=== PATIENT | male | born 1945 | race Caucasian/White ===

== ENCOUNTER 2021-03-31 09:38 | Outpatient (CLI) | payer MEDICARE, SELFPAY ==
[2021-03-31 10:05] LABS: Anion Gap 11 mmol/L (8-16); Blood Urea Nitrogen 22 mg/dL (9-20); Calcium 9.6 mg/dL (8.4-10.2); Carbon Dioxide 24 mmol/L (22-30); Chloride 107 mmol/L (98-107); Estimated Glomerular Filt Rate 49; Glucose 132 mg/dL (75-110); Potassium 4.3 mmol/L (3.4-5.0); Sodium 142 mmol/L (137-145)
== END 2021-03-31 09:39 | disposition home or self-care (01) ==
PROVIDERS: Visit Provider Anesthesiology
DX: Z79.899 Other long term (current) drug therapy (principal); Z01.818 Encounter for other preprocedural examination
CPT/HCPCS: 36415; 80048

== ENCOUNTER 2021-04-02 01:59 | Day surgery (SDC) | payer MEDICARE, SELFPAY ==
[2021-03-21 09:22] VITALS: BMI 27.8
[2021-04-02 10:05] VITALS: BP 126/75; PULSE 83; RESP 16; TEMP 36.6; O2SAT 99
[2021-04-02 10:17] VITALS: BMI 27.3
[2021-04-02] MEDS: LACTATED RINGERS 1,000 ML 30 ML IV CONT (10:35)
--- NOTE | 2021-04-02 10:40 | WPDANESEPPF ---
Anes - Initial Pre Proc Eval Procedure: Operation Date: 04/02/21 12:00 Proposed Procedures p Excisional Biopsy Left Buttocks Mass - Promise Ochoa MD Date/Time: 04/02/21 10:40 Surgeon: Promise Ochoa MD Pre Op Diagnosis: Left buttocks subcutaneous mass Patient Data Age: 76 Gender: M Height: 1.73 m Weight: 81.7 kg Allergies Allergy/AdvReac Type Severity Reaction Status Date / Time codeine Allergy Mild Upset Verified 04/02/21 10:12 stomach and pain Iodinated Contrast Media Allergy Mild Swelling Verified 04/02/21 10:12 Home Medications Medication Instructions Recorded Confirmed Type aspirin 81 mg chewable tablet 81 mg PO DAILY 03/18/21 04/02/21 History cilostazol 100 mg tablet 100 mg PO BID 03/18/21 03/21/21 History dicyclomine 10 mg capsule 10 mg PO BID 03/18/21 03/21/21 History diphenhydramine HCl 25 mg capsule 25 mg PO QHS 03/18/21 03/21/21 History furosemide 80 mg tablet 80 mg PO QAM 03/18/21 03/21/21 History losartan 50 mg tablet 50 mg PO DAILY 03/18/21 03/21/21 History metoprolol succinate 100 mg 100 mg PO DAILY 03/18/21 04/02/21 History tablet,extended release 24 hr multivitamin 1 tablet PO DAILY 03/18/21 04/02/21 History pantoprazole 40 mg tablet,delayed 40 mg PO QAM 03/18/21 03/21/21 History release potassium chloride 10 mEq 10 meq PO DAILY 03/18/21 03/21/21 History capsule,extended release psyllium husk 0.4 gram capsule 0.4 g PO DAILY 03/18/21 04/02/21 History rosuvastatin 40 mg tablet 40 mg PO DAILY 03/18/21 03/21/21 History Patient hx anesthesia problems: none Family hx anesthesia problems: none PMFSH Past Medical History Medical History CHF (congestive heart failure) History of blood transfusion History of heart attack History of kidney stones HTN (hypertension) Hx of hepatitis C Hypercholesteremia Surgical History Surgical History Hx of appendectomy Hx of CABG Hx of gastric ulcer ablation W endoscopy Family History Family History Father Old age Mother Acute myocardial infarction Sibling Agent [place] poisoning Sibling Acute myocardial infarction Social History Social History Smoking status: Current every day smoker Tobacco type: cigarettes Alcohol intake: current Substance use: current Substance use type: marijuana Living arrangements: alone Gender identity (if verbalized by the patient): Male Spiritual care concerns: No Anes - Eval Final PreProcedure Day of Procedure 04/02/21 10:40 Patient weight: overweight Heart: regular rate and rhythm and murmur (II/ SM) Lungs: clear to auscultation Airway: Mallampati scale class II and other (dentures) Neurological: alert and oriented Last oral intake: >/= 8 hours ASA classification: III Emergent: no Anesthetic plan: proceed Anesthesia type and monitoring: general GIVS and standard monitoring Informed Consent: The patient's anesthetic plan and its attendant risks and benefits were discussed with the patient/family/POA. Questions were solicited and answers provided to the satisfaction of the patient/family/POA.
--- NOTE | 2021-04-02 10:47 | WPDHPUPDATE1 ---
History and Physical Update Update Date/Time: 04/02/21 10:47 History and Physical has been reviewed, including an updated exam of the patient. There are NO changes in the patient's condition. Risks, benefits, and alternatives have been discussed and questions answered. Patient agrees to proceed with procedure.
[2021-04-02] MEDS: ceFAZolin 2 GM/D5W 50 ML 2 GM/50 ML BAG IVPB (11:52)
[2021-04-02] MEDS: BUPIVACAINE/EPINEPHRINE 0.5% 10 ML VIAL INFILTRATE (12:11)
[2021-04-02 12:30] VITALS: BP 107/59; PULSE 83; RESP 14; TEMP 36.4; O2SAT 97
--- NOTE | 2021-04-02 12:35 | W.PM.PROC2 ---
Procedure Note - Detailed Date of Procedure 04/02/21 Pre-op Diagnosis Left buttocks subcutaneous mass Post-op Diagnosis other (Ruptured sebaceous cyst) Procedure Performed excisional biopsy left buttock ruptured sebaceous cyst measuring 5 x 4 cm Surgeon Promise Ochoa MD Anesthesia MAC and local Indications 76-year-old male presenting to the office with 5 x 4 cm left buttock mass Findings 5 x 4 cm left buttock ruptured sebaceous cyst Description of Procedure The patient was taken to the operating room placed in the lateral position. After adequate induction of mac anesthesia the patient was prepped and draped in the normal sterile fashion. A time-out was then done to verify the patient's identity as well as the procedure being performed. I began by localizing the area in and around this mass in the left buttock. I then made an incision over the mass and immediately noted this was a sebaceous cyst. There was a 2 x 2 area of overlying redness and this cyst had ruptured into this area. Given this I did bluntly dissect around the cyst and I was able to remove the cyst cavity in full however the sebaceous material did come out during excision. This was all sent to pathology for further review. The cyst measured 5 x 4 cm prior to excision. This cyst was completely located within the subcutaneous tissue and overlying dermis. Once the cyst was completely removed, I localized the cavity further and irrigated with normal saline. Then closed the subcutaneous tissue with 3 0 Vicryl suture and the skin was closed with 4 O Monocryl subcuticular suture. Dermabond was then placed on the wound. The patient tolerated the procedure well and was alert and awake in the operating room postoperative. He will be transferred to the recovery room in stable condition. Estimated Blood Loss 5 Drains No Packing No Pathology yes Complications No immediate complications Condition stable Disposition PACU
[2021-04-02 13:00] VITALS: BP 131/59; PULSE 69
--- NOTE | 2021-04-02 13:30 | SUR.PHASEII ---
Ok to resume aspirin tomorrow per Dr. Ochoa.
== END 2021-04-02 13:22 | disposition home or self-care (01) ==
PROVIDERS: Visit Provider Surgery
PROC: (CPT 11406; principal; 2021-04-02 12:00)
DX: L72.0 Epidermal cyst (principal); I11.0 Hypertensive heart disease with heart failure; I50.9 Heart failure, unspecified; E78.00 Pure hypercholesterolemia, unspecified; Z86.19 Personal history of other infectious and parasitic diseases; Z95.1 Presence of aortocoronary bypass graft; F17.210 Nicotine dependence, cigarettes, uncomplicated; F12.90 Cannabis use, unspecified, uncomplicated
CPT/HCPCS: 11406; 12032; 36415; 80048; 88304; 88305; J0690; J2250; J2405; J3010; J7120